=== PATIENT | female | born 1990 | race Caucasian/White ===

== ENCOUNTER 2016-12-14 16:00 | Inpatient (IN) | payer BC, OTHER ==
--- NOTE | ~2016-12-14 | DS ---
Unit #: [id number] #: [id number] Patient: CLAYTON SINGLETARY [id number] [facility] [address] [place] [address] [id number] MR#: [id number] NAME: CLAYTON SINGLETARY. ROOM: [facility] Age: 26 Sex: F Admission Date: 12/14/2016 : 1990 Discharge Date: 12/18/2016 Attending Physician: Cordell Live M.D. Primary Care Physician: Primary Care Physician No DISCHARGE SUMMARY REASON FOR ADMISSION Depression and suicidal ideation. DIAGNOSTIC STUDIES LABORATORY RESULTS: Urine drug screen negative. Other labs unremarkable. test, negative. HOSPITAL COURSE The patient was admitted to inpatient unit on 12/14/2016 and discharged on 12/18/2016. The patient was treated on the inpatient unit with structured milieu, expressive therapy, chemical dependency group, psychoeducation, and psychotherapy. The patient was responsive to treatment. Subsequently, the patient was discharged with a plan to follow up in outpatient program. DISCHARGE MEDICATIONS 1. Trazodone 100 mg at bedtime for sleep. 2. Celexa 20 mg daily for depression. 3. Vistaril 25 mg t.i.d. for anxiety. DISCHARGE DIAGNOSES Psychiatric: Major depressive disorder, recurrent, severe, F33.2. Secondary diagnosis: Deferred. Medical diagnosis: None. Stressors: Psychosocial stressors. DISCHARGE INSTRUCTIONS The patient is to follow up in outpatient clinic as per social services assistant. CONDITION ON DISCHARGE The patient was pleasant and cooperative. Denied any psychotic symptom or any suicidal ideation. PROGNOSIS Guarded. DIET AND ACTIVITY As tolerated. Unit #: [id number] #: [id number] Patient: CLAYTON SINGLETARY Dictated by... Yasmin Doe/kyra TD: 12/20/2016 11:35 JOB #: [id number] DISCHARGE SUMMARY Page 1 of 1 X Cordell Live MD X DISCHARGE SUMMARY
--- NOTE | ~2016-12-14 | HP ---
Unit #: [id number] #: [id number] Patient: ILSA SINGLETARY [id number] [place] [address] [id number] MR#: [id number] NAME: ILSA SINGLETARY. ROOM[facility] Age: 26 Sex: F Admission Date: 12/14/2016 : 1990 Attending Physician: Cordell Live M.D. Admitting Physician: Cordell Live M.D. Primary Care Physician: Primary Care Physician No HISTORY AND PHYSICAL HISTORY OF PRESENT ILLNESS Ilsa is a 26 year old, admitted to [facility], with depression and verbalizing wanting to hurt herself. PAST MEDICAL HISTORY Nothing significant. PAST SURGICAL HISTORY Nothing reported. ALLERGIES Penicillin, sulfa. SOCIAL HISTORY She does not smoke, drinks alcohol on occasion, denies illicit drug use. FAMILY HISTORY Medically noncontributory. REVIEW OF SYSTEMS CONSTITUTIONAL: No fever or chills. HEENT: Denies any sore throat, ear pain or runny nose. CARDIOVASCULAR: Denies chest pain, irregular heart rhythm or palpitations. CHEST: Denies shortness of breath or cough. No hemoptysis. GASTROINTESTINAL: Denies nausea, vomiting, diarrhea or chronic constipation. ENDOCRINE: Denies history of increased thirst or urination. No recent significant weight loss or gain. GENITOURINARY: Denies dysuria, frequency, or hematuria. SKIN: Denies any rashes. HEMATOLOGIC: Denies history of increased bleeding or bruising. MUSCULOSKELETAL: Denies any hot, swollen joints. No generalized muscle pain. NEUROLOGIC: Denies problems with vision or speech. No frequent, severe headaches. No numbness, tingling or weakness in any extremities. Denies loss of bladder or bowel control. CURRENT MEDICATIONS 1. Desyrel 50 mg q.h.s. 2. Celexa 20 mg q.h.s. 3. Vistaril 25 mg t.i.d. 4. Trazodone 75 mg q.h.s. p.r.n. 5. Milk of magnesia p.r.n. Unit #: [id number] #: [id number] Patient: ILSA SINGLETARY 6. Maalox p.r.n. 7. Tylenol p.r.n. PHYSICAL EXAMINATION GENERAL: Alert, well-nourished, no apparent distress. VITAL SIGNS: Blood pressure 110/74, heart rate 90, respirations 16, and temperature 98.6. WEIGHT: 103 pounds. HEIGHT: 5 feet 1 inch. SKIN: Warm and dry without rash or lesion. HEENT: Normocephalic. TMs not viewed. Oral and nasal passages clear. Conjunctivae clear. PERRLA. EOMs intact. NECK: Supple without lymphadenopathy or thyromegaly. HEART: Regular rate and rhythm without murmur. LUNGS: Clear. ABDOMEN: Soft, nontender. : Not done. EXTREMITIES: No evidence of cyanosis, clubbing or edema. Moves all without focal deficit. NEUROLOGICAL: Grossly within normal limits. Cranial Nerves: II: Visual brothers are intact. III, IV AND : Extraocular movements are intact. Pupils are equal, round and reactive to light. V: Facial sensation is grossly normal. VII: Facial movements and expression are normal. VIII: Auditory acuity grossly intact. IX, X: Uvula is midline. Phonation is normal. XI: Patient shrugs shoulders and turns head normally. XII: Tongue protrudes in the midline. Sensory and Motor Function: Sensory and motor sensation is grossly normal. Motor: moves all extremities well. Coordination: Gait is normal. Deep Tendon Reflexes: Intact. IMPRESSION Psychiatric admission. RECOMMENDATIONS Psychiatric, per psychiatrist. MEDICAL I see no contraindications to participating in facility's activities. MEDICAL PROGNOSIS Good. MEDICAL CONDITION Stable. Dictated by... Candelaria Khanna P.A.-C. for Yasmin Garcia/margarito TD: 12/16/2016 06:18 JOB #: [id number] Unit #: [id number] #: [id number] Patient: ILSA SINGLETARY HISTORY AND PHYSICAL Page 1 of 1 X Candelaria Khanna HISTORY AND PHYSICAL
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
--- NOTE | ~2016-12-14 | PN ---
Unit #: [id number] #: [id number] Patient: CLAYTON SINGLETARY [id number] [facility] [address] [place] [address] [id number] MR#: [id number] NAME: CLAYTON SINGLETARY. ROOM: [facility] Age: 26 Sex: F Admission Date: 12/14/2016 : 1990 Attending Physician: Cordell Live M.D. Admitting Physician: Cordell Live M.D. Primary Care Physician: Primary Care Physician Martine SILVERIO PROGRESS NOTES DATE OF SERVICE 12/17/2016 DISCUSSION Ms. Rosenbaum is a 26-year-old female seen on 12/17/2016. The patient reported mood is getting better. Denied any thoughts of harming self or others. Compliant, cooperative. No side effects from medication. Complete Review of Systems: Unremarkable. MENTAL STATUS EXAMINATION General Appearance: The patient dressed casually. Attention span, concentration: Fair. Oriented in place and person. Mood and affect labile. Speech: Monotone. Thought process: [place]. The patient denied any thoughts of harming self or others. Recent and remote memory: Poor. Insight and judgment: Poor. DIAGNOSIS Mood disorder not otherwise specified. ASSESSMENT/PLAN Advised to continue with current medication and therapeutic protocol. If needed, consider further adjustment of medication with a plan to consider discharge this week, and follow up on outpatient program. Dictated by... Yasmin Doe/carlos alberto TD: 12/18/2016 10:25 JOB #: [id number] Unit #: [id number] #: [id number] Patient: CLAYTON SINGLETARY PROGRESS NOTES Page 1 of 1 X Cordell Live MD PROGRESS NOTE
--- NOTE | ~2016-12-14 | PN ---
Unit #: [id number] #: [id number] Patient: CLAYTON SINGLETARY [id number] [facility] [address] [place] [address] [id number] MR#: [id number] NAME: CLAYTON SINGLETARY. ROOM: [facility] Age: 26 Sex: F Admission Date: 12/14/2016 : 1990 Attending Physician: Cordell Live M.D. Admitting Physician: Cordell Live M.D. Primary Care Physician: Primary Care Physician Martine SILVERIO PROGRESS NOTES DATE OF SERVICE 12/16/2016 DISCUSSION Ms. Rosenbaum is a 26-year-old female seen on 12/16/2016. The patient interviewed, chart reviewed. Obtained information from nursing staff. The patient was compliant, cooperative. Reports feeling better. No side effects from medication. Complete Review of Systems: Unremarkable. MENTAL STATUS EXAMINATION General Appearance: The patient dressed casually. Attention span, concentration: Fair. Oriented in place and person. Mood and affect labile. Speech: Monotone. Thought process: [place]. The patient denied any thoughts of harming self or others. Recent and remote memory: Poor. Insight and judgment: Poor. DIAGNOSIS Mood disorder not otherwise specified. ASSESSMENT/PLAN Advised to continue with current medication and therapeutic protocol. If needed, consider further adjustment of medication. Dictated by... Yasmin Doe/carlos alberto TD: 12/17/2016 15:07 JOB #: [id number] Unit #: [id number] #: [id number] Patient: CLAYTON SINGLETARY PEACHANTE PROGRESS NOTES Page 1 of 1 X Cordell Live MD PROGRESS NOTE
--- NOTE | ~2016-12-14 | PN ---
Unit #: [id number] #: [id number] Patient: CLAYTON SINGLETARY [id number] [facility] [address] [place] [address] [id number] MR#: [id number] NAME: CLAYTON SINGLETARY. ROOM: [facility] Age: 26 Sex: F Admission Date: 12/14/2016 : 1990 Attending Physician: Cordell Live M.D. Admitting Physician: Cordell Lvie M.D. Primary Care Physician: Primary Care Physician Martine SILVERIO PROGRESS NOTES DATE OF SERVICE: 12/15/2016 DISCUSSION Ms. Rosenbaum is a 26-year-old female, seen on 12/15/2016. The patient interviewed, chart reviewed, and obtained information from nursing staff. The patient is sad, depressed, withdrawn, isolative, flat affect, feeling of hopelessness and worthlessness. REVIEW OF SYSTEMS A complete review of systems is unremarkable. MENTAL STATUS EXAMINATION General appearance; the patient dressed casually. Attention span and concentration, fair. Oriented in place and person. Mood and affect; sad and depressed. Speech, monotone. Thought process, concrete. The patient denied any thoughts of harming self or others. Recent and remote memory, poor. Insight and judgment, poor. DIAGNOSIS Major depressive disorder, recurrent. ASSESSMENT AND PLAN Advised to continue with current medication. If needed, consider further adjustment of medication. Dictated by... Yasmin Doe/kyra TD: 12/16/2016 12:42 JOB #: [id number] Unit #: [id number] #: [id number] Patient: CLAYTON SINGLETARY PEACHANTE PROGRESS NOTES Page 1 of 1 X Cordell Live MD PROGRESS NOTE
[2016-12-15 09:49] LABS: BASOPHIL% 0.8 % (0-2.5); EOSINOPHIL# 0.2 X10e3 (0-0.7); EOSINOPHIL% 4.3 % (0.0-7.0); HEMATOCRIT 35.1 % (35.0-45.0); HEMOGLOBIN 11.1 gm/dL (12.0-16.0); LYMPHOCYTE# 2.4 X10e3 (1.0-3.5); LYMPHOCYTE% 43.3 % (17.0-45.0); MEAN CELL VOLUME 78.4 FL (83-96); MEAN CORPUSCULAR HEMOGLOBIN 24.7 PG (28-34); MEAN CORPUSCULAR HGB CONC 31.6 g/dL (30-36); MEAN PLATELET VOLUME 7.8 FL (6.5-11.5); MONOCYTE# 0.7 X10e3 (0-1.0); MONOCYTE% 11.6 % (3.0-12.0); NEUTROPHIL# 2.3 X10e3 (1.5-7.1); PLATELET COUNT 250 X10e3 (140-420); RED BLOOD COUNT 4.48 X10e (3.90-5.30); RED CELL DISTRIBUTION WIDTH 16.2 % (11.0-15.5); WHITE BLOOD COUNT 5.7 X10e3 (4.0-10.5)
[2016-12-15 09:49] LABS: URINE APPEARANCE TURBID; URINE BILIRUBIN NEG (NEG); URINE BLOOD 2+ (NEG); URINE COLOR DK YELLOW; URINE GLUCOSE NEG (NEG); URINE KETONE 2+ (NEG); URINE LEUKOCYTE ESTERASE TRACE (NEG); URINE NITRATE NEG (NEG); URINE PH 5.5 (5-8); URINE PROTEIN NEG (NEG); URINE SPECIFIC GRAVITY 1.023 (1.003-1.035)
[2016-12-15 09:52] LABS: URBCS1 AUWI 0-2 /[HPF] (0-2); URINE BACTERIA AUWI NEG (NEGATIVE); URINE SQUAMOUS EPITHELIAL CELL OCC /[HPF]; UWBCS1 AUWI 0-2 (0-5)
[2016-12-15 09:53] LABS: DIFF IND NO
[2016-12-15 10:20] LABS: ALBUMIN SERUM 4.3 g/dL (3.5-5.0); BILIRUBIN,TOTAL 1.1 mg/dL (0.2-2.0); CALCIUM SERUM 9.3 mg/dL (8.4-10.2); CREATININE SERUM 0.7 mg/dL (0.6-1.4); GLOM FILT RATE Estimated 120.4 mL/min (>60); POTASSIUM 4.2 mmol/L (3.5-5.1)
[2016-12-15 10:44] LABS: AMPHETAMINE NEG (NEG); BARBITURATES NEG (NEG); BENZODIAZEPINES NEG (NEG); COCAINE NEG (NEG); MARIJUANA NEG (NEG); OPIATES NEG (NEG); TRICYCLIC ANTIDEPRESSANTS NEG (NEG); U METHADONE NEG (NEG)
== END 2016-12-18 16:15 | disposition home or self-care (01) | DRG 885 ==
LOC: P2L 19:37
PROVIDERS: Psychiatry & Neurology Psychiatry
DX: F33.2 Major depressive disorder, recurrent severe without psychotic features (principal); R45.851 Suicidal ideations; F39 Unspecified mood [affective] disorder; Z88.0 Allergy status to penicillin; Z88.2 Allergy status to sulfonamides
CPT/HCPCS: 80053; 80307; 81003; 84703; 85025